=== PATIENT | female | born 1975 | race Hispanic/Latino ===

== ENCOUNTER 2023-03-25 14:41 | Emergency (ER) | payer SELFPAY ==
--- NOTE | ~2023-03-25 | XR_ITS ---
XR shoulder RT min 2V 03/25/2023 16:18 Indication: Right shoulder pain. Procedure: 4 views right shoulder Comparison: No prior studies for comparison. Findings: No fracture, subluxation or dislocation. There is anatomic alignment. No soft tissue abnorm ality. No foreign bodies. Impression: 1: No acute fracture. Reviewed, dictated and finalized at location A. Impression: 1: No acute fracture.
[2023-03-25 14:56] VITALS: BP 144/87; PULSE 90; RESP 16; TEMP 36.9; O2SAT 100
--- NOTE | 2023-03-25 15:15 | ED.GENADULT ---
HPI - General Adult General Chief complaint: Extremity Injury, Upper Stated complaint: Right Shoulder Pain Time Seen by Provider: 03/25/23 16:06 Source: patient, family, RN notes reviewed and old records reviewed Mode of arrival: ambulatory Limitations: language barrier (Speaks [place]an) and other (interpretor services utilized for visit) History of Present Illness HPI narrative: 47 year old female presents to the [facility] care with complaints of right shoulder pain for the past 2 weeks with [id number] symptoms for the past week.Patient reports that her pain is at the AC joint and goes around her arm to axilla area, is aggravated by abduction and repetitive movements. 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 Patient denies any pain to her upper humerus region or any radiation of pain down arm , no tingling or numbness strong pulses to right arm noted. MD complaint: shoulder pain Onset (ago): week(s) (2) Location: right and upper extremity Severity scale (1-10): 5 Quality: aching Exacerbating factors: movement Treatments prior to arrival: NSAID Related Data Allergies Allergy/AdvReac Type Severity Reaction Status Date / Time Penicillins Allergy Unknown Verified 03/25/23 16:05 Review of Systems Review of Systems: CONSTITUTIONAL: Denies fever, chills, or sweats. EYES: Denies visual changes, redness, or discharge. ENT: Denies rhinorrhea, congestion, sore throat, or otalgia. CARDIOVASCULAR: Denies chest pain, palpitations, or edema. RESPIRATORY: Denies cough or dyspnea. GASTROINTESTINAL: Denies abdominal pain, nausea, vomiting, or diarrhea. GENITOURINARY: Denies dysuria or hematuria. SKIN: Denies rash or itching. MUSCULOSKELETAL: Denies back pain, positive for right shoulder AC joint pain, or myalgia. NEUROLOGIC: Denies headache, numbness, or weakness. PSYCHIATRIC: Denies anxiety or depression. All systems reviewed & are unremarkable except as noted in HPI and below PMFSH Surgical History Surgical History (Updated 03/25/23 @ 16:17 by Marium Melo NP) History of tonsillectomy Social History Social History (Updated 03/26/23 @ 13:51 by Marium Melo NP) Smoking status: Never smoker Alcohol intake: current Alcohol use details: rare Substance use: never Living arrangements: with family Gender identity (if verbalized by the patient): Female Comments At time of signature, agree with nursing past medical, surgical, social and family history. There is no relevant family history pertinent to the presenting complaint Exam Narrative: GENERAL: Well-appearing, well-nourished, and in no acute distress. HEAD: Normocephalic, atraumatic. EYES: PERRLA and EOMI. ENT: Nares clear, no rhinorrhea or epistaxis. Mucous membranes moist. NECK: Supple.no lymphadenopathy CHEST: Clear to auscultation. No respiratory distress. SAO2 100% on room air SAO2 100% on room air HEART: Regular rate and rhythm. No murmur heard. Normal peripheral pulses. ABDOMEN: Soft, nontender, nondistended, normal active bowel sounds. EXTREMITIES: Normal range of motion. No edema.ROM normal but with discomfort, no radiation of pain to her humerus, denies any tingling or numbness to her right arm or hand with strong pulses present to right arm, Pain most prevalent to AC joint region and reports goes around arm to axilla increases with movement, patient is right hand dominant SKIN: Warm, dry, no rash. NEURO: No focal deficits. Alert and oriented x3. Course Course Emergency Course: Patient is aware of diagnosis, understands and agrees to treatment plan.? Anticipatory guidance given.? Patient agrees to follow-up as directed and is aware of reasons to seek care at the emergency department. Portions of this record may have been created with voice recognition software Level of Care: Express Care Visit Vital Signs Vital
--- NOTE | 2023-03-25 16:43 | PC.NURSE ---
[id number]- [facility] [place] [id number] contacted for discussing results with patient. No further questions at this time
== END 2023-03-25 16:54 | disposition home or self-care (01) ==
PROVIDERS: Emergency Provider Registered Nurse
DX: M25.511 Pain in right shoulder (principal); S43.401A Unspecified sprain of right shoulder joint, initial encounter; X58.XXXA Exposure to other specified factors, initial encounter
CPT/HCPCS: 73030; 99213; G0463

== ENCOUNTER 2023-11-09 16:15 | Emergency (ER) | payer SELFPAY ==
[2023-11-09 16:27] VITALS: BP 153/86; PULSE 97; RESP 16; TEMP 37.1; O2SAT 100
--- NOTE | 2023-11-09 16:47 | ED.GENADULT ---
HPI - General Adult General Chief complaint: Unspecified Stated complaint: Right Side Pain Time Seen by Provider: 11/09/23 16:50 Source: patient, RN notes reviewed and old records reviewed Mode of arrival: ambulatory Limitations: language barrier ( Change Number Operator services used) History of Present Illness HPI narrative: 48-year-old female to Express Care for complaint of right lateral rib pain for 3 days. Patient endorses that she does heavy lifting repetitively at work and that this started while at work. patient endorses that the pain is worse with movement. patient has not attempted to treat at home. Patient denies pain with breathing. Patient denies any known injury. Related Data Allergies Allergy/AdvReac Type Severity Reaction Status Date / Time Penicillins Allergy Unknown Verified 11/09/23 16:54 Review of Systems Review of Systems: All systems reviewed & are unremarkable except as noted in HPI and below Constitutional: Constitutional: Reports no additional constitutional complaints Eyes: Eyes: Reports no additional eye complaints ENT: Reports system reviewed and no additional complaints, except as documented Cardiovascular: Cardiovascular: Reports no additional cardiovascular complaints, Denies chest pain and Denies dyspnea Respiratory: Respiratory: Reports no additional respiratory complaints, Denies cough and Denies dyspnea Musculoskeletal: Musculoskeletal: Reports other ( right lateral rib pain) Neurologic: Reports system reviewed and no additional complaints, except as documented Psychiatric: Psychiatric: Reports no additional psychiatric complaints [facility] Surgical History Surgical History (Updated 03/25/23 @ 16:17 by Marium Melo NP) History of tonsillectomy Social History Social History (Updated 03/26/23 @ 13:51 by Marium Melo NP) Smoking status: Never smoker Alcohol intake: current Alcohol use details: rare Substance use: never Living arrangements: with family Gender identity (if verbalized by the patient): Female Comments At the time of my signature, I reviewed and agree with the nursing past medical, surgical, social, and family history. There is no relevant family history pertinent to the patient complaint. Exam Const: General: cooperative, healthy appearing, comfortable, no acute distress, alert and well nourished Nutritional Appearance: well nourished Orientation/consciousness: patient oriented x3 Limitations: no limitations HENMT: Head: normal to inspection Ears: external ears normal Face/Nose/Sinus: Normal external nose present, Normal nares present, normal facial exam, No erythema and No edema Face and sinus: normal facial exam, no erythema and no edema Mouth: Yes Normal oral and palatal mucosa present Eyes: General: appearance normal, both eyes and all related structures Neck: Neck: normal visual inspection, full ROM and no meningeal signs Lymphatic: no lymphadenopathy noted and no lymphedema noted Chest: Chest palpation & inspection: normal inspection of the chest Resp: Effort & Inspection: normal respiratory effort, able to speak in complete sentences, no audible wheezes, no cough, not labored, no nasal flaring, no pursed lip breathing and no respiratory distress Auscultation: clear to auscultation bilaterally Cardio: Jugular venous distension: no JVD Rate: regular rate Rhythm: regular rhythm Peripheral pulses: Peripheral pulses 2+ throughout Back/Spine/Pelvis: Cervical Spine: cervical ROM normal Other: patient complained right lateral rib pain worse with palpation Skin: General skin exam: normal color, no rashes or lesions noted and turgor normal Neuro: General: patient oriented x3, gait normal, moves all extremities and no meningeal signs Speech: normal speech Gait exam (Neuro): Normal gait present Extrem: General: normal to inspection, full ROM and capillary refill normal Psych: Appearance: grossly normal and well kempt Cou
== END 2023-11-09 17:22 | disposition home or self-care (01) ==
PROVIDERS: Emergency Provider Nurse Practitioner Family
DX: S29.011A Strain of muscle and tendon of front wall of thorax, initial encounter (principal); X50.3XXA Overexertion from repetitive movements, initial encounter; Y99.0 Civilian activity done for income or pay
CPT/HCPCS: 99213; G0463

== ENCOUNTER 2024-05-04 20:41 | Emergency (ER) | payer SELFPAY ==
[2024-05-04 21:17] VITALS: BP 160/89; PULSE 119; RESP 16; TEMP 37; O2SAT 99
--- NOTE | 2024-05-05 01:26 | PC.NURSE ---
No answer for repeat vital signs.
--- NOTE | 2024-05-05 01:39 | PC.NURSE ---
No answer when called for room.
== END 2024-05-05 01:26 | disposition left against medical advice (07) ==
LOC: ANHED 05-05 01:45
DX: Z53.21 Procedure and treatment not carried out due to patient leaving prior to being seen by health care provider (principal)
CPT/HCPCS: 99199

== ENCOUNTER 2025-05-12 10:26 | Emergency (ER) | payer SELFPAY ==
[2025-05-12 10:40] VITALS: BP 121/75; PULSE 92; RESP 18; TEMP 36.9; O2SAT 100
--- NOTE | 2025-05-12 11:08 | ED.URI ---
HPI - URI/Sore Throat General Chief Complaint: Upper Respiratory Infection Stated Complaint: Sinus Time Seen by Provider: 05/12/25 11:08 Source: patient Mode of arrival: ambulatory Limitations: language barrier History of Present Illness HPI Narrative: 49 yo F presents with c/o sinus congestion, PND, sore throat for 4 to 5 days. Taking mucinex with little relief. Because having pain, clogged sensation to L ear 2 days ago. Afebrile. All systems reviewed and negative except as noted above. Related Data Allergies Allergy/AdvReac Type Severity Reaction Status Date / Time Penicillins Allergy Unknown Verified 05/12/25 10:35 [facility] Surgical History Surgical History (Updated 03/25/23 @ 16:17 by Marium Melo NP) History of tonsillectomy Social History Social History (Updated 03/26/23 @ 13:51 by Marium Melo NP) Smoking status: Never smoker Alcohol intake: current Alcohol use details: rare Substance use: never Living arrangements: with family Gender identity (if verbalized by the patient): Female Comments At time of signature, agree with nursing past medical, surgical, social and family history. There is no relevant family history pertinent to the presenting complaint. Exam Narrative: GENERAL: This is a well-nourished, well-developed patient, in no apparent distress. HEAD: normocephalic, atraumatic. EYES: PERRL. Sclera clear/white. Vision is grossly intact. EARS: External ears normal, auditory canals clear and without drainage, Left TM is erythematous with fluid and bulging. Right TM is normal. No perforation bilaterally. Hearing grossly intact. NOSE: External nose normal with Purulent nasal drainage, erythema to bilateral nares with mild swelling. THROAT: Mucous membranes moist, Erythematous with postnasal drainage. No swelling or exudates. NECK: Neck supple, non-tender without lymphadenopathy, masses or thyromegaly. CARDIOVASCULAR: Regular rate and rhythm without murmurs, gallops, or rubs. RESPIRATORY: Clear to auscultation. Breath sounds equal bilaterally. No wheezes, rales, or rhonchi. SKIN: warm, Dry, intact with no suspicious lesions or rash, good texture and turgor. NEURO: awake, alert, and oriented to person, place and time. There were no obvious focal neurologic abnormalities. EXTREMITIES: No joint tenderness, effusion, or edema noted. Course Course Level of Care: Express Care Visit Vital Signs Vital signs: Vital Signs Temperature 36.9 C 05/12/25 10:40 Pulse Rate 92 05/12/25 10:40 Respiratory Rate 18 05/12/25 10:40 Blood Pressure 121/75 05/12/25 10:40 Pulse Oximetry 100 05/12/25 10:40 Oxygen Delivery Room Air 05/12/25 10:40 Temperature 36.9 C 05/12/25 10:40 Pulse Rate 92 05/12/25 10:40 Respiratory Rate 18 05/12/25 10:40 Blood Pressure 121/75 05/12/25 10:40 Pulse Oximetry 100 05/12/25 10:40 Oxygen Delivery Room Air 05/12/25 10:40 Reviewed MDM - URI/Sore Throat MDM Narrative Medical decision making narrative: will treat left serous otitis with clindamycin. Differential Diagnosis Differential diagnosis: Likely upper respiratory infection, otitis media and sinusitis Lab Data Labs: Lab Results 05/12/25 Range/Units 10:50 POC Influenza A Ag Negative (Negative) POC Influenza B Ag Negative (Negative) POC SARS CoV-2 Ag Negative (Negative) Discharge Plan Discharge Clinical Impression: Acute serous otitis media of left ear, Acute sinusitis Patient Disposition: Home Condition: Stable Instructions: Antibiotic Form, Fluid In The Ear (Serous Otitis Media) (ED) Additional Instructions: Pinedo prueba de COVID-19 e influenza rubina negativo hoy. Tiene la oreja izquierda infectada. [place] el antibi?jefry seg?n lo recetado hasta que se le pase. Le recet? un espray nasal y un descongestionante. T?aleman seg?n lo recetado. El espray nasal se usa para tratar la congesti?n y debe usarse solo brent 3 d?as. Si usa el espray nasal Afrin brent m?s de 3 d?as, la congesti?n nasal empeorar?. [place] ibuprofeno o Tylenol cada 6-8 horas seg?n sea necesario para el dolor. [place] al menos 1 litro de agua al d?a. Consulte con pinedo m?dico de cabecera si los s?ntomas no mejoran. Patient Language: Maltese Prescriptions: New clindamycin HCl 300 mg capsule 300 mg PO Q8H 10 Days Qty: 30 0RF fluticasone propionate [Flonase Allergy Relief] 50 mcg/actuation spray,suspension 1 spray intranasal BID Qty: 16 0RF Rx Instructions: administer into each nostril Claritin-D 12 Hour 5-120 mg tablet extended release 12 hr 1 tablet PO Q12H PRN (Reason: nasal congestion) Qty: 20 0RF Follow-up/Referrals: PHYSICIAN,SHADING PAINTER [Primary Care Provider, Internal Medicine] Stand Alone Forms: Work/School Release IP Time of Disposition: 11:16
[2025-05-12 11:16] LABS: EDCOVIDSCREEN Negative (Negative); EDINFLUASCREEN Negative (Negative); EDINFLUBSCREEN Negative (Negative)
== END 2025-05-12 11:20 | disposition home or self-care (01) ==
PROVIDERS: Emergency Provider Nurse Practitioner Family
DX: H65.02 Acute serous otitis media, left ear (principal); J01.90 Acute sinusitis, unspecified; Z20.822 Contact with and (suspected) exposure to COVID-19
CPT/HCPCS: 87426; 87804; 99213; G0463